=== PATIENT | female | born 1995 | race Caucasian/White ===

== ENCOUNTER → 2017-06-09 | Outpatient (CLI) | payer OTHER | LOC: LAB 14:04 | PROVIDERS: ATTEND Nurse Practitioner Psychiatric/Mental Health | DX: Z01.84 Encounter for antibody response examination (principal) | CPT/HCPCS: 36415; 86706 ==

== ENCOUNTER → 2018-10-24 | Outpatient (CLI) | payer OTHER ==
[2018-10-24 13:40] LABS: PLATELET COUNT, AUTOMATED 433 K/uL (150-450)
[2018-10-24 13:44] LABS: LDL CHOLESTEROL 96 mg/dl
== END ==
LOC: LAB 13:11
PROVIDERS: ATTEND Nurse Practitioner Psychiatric/Mental Health
DX: Z00.00 Encounter for general adult medical examination without abnormal findings (principal)
CPT/HCPCS: 36415; 82040; 82247; 82310; 82374; 82435; 82465; 82565; 82947; 83540; 83718; 84075; 84132; 84155; 84295; 84439; 84443; 84450; 84460; 84478; 84480; 84520; 85025; 86900; 86901